=== PATIENT | male | born 1990 ===

== ENCOUNTER 2022-09-03 04:33 | Day surgery (SDC) | payer OTHER ==
[2022-09-01 14:40] VITALS: BMI 35.4
[2022-09-03 13:23] VITALS: TEMP 97.8
[2022-09-03 13:41] VITALS: RESP 17
[2022-09-03 14:20] VITALS: BP 112/84; PULSE 58
== END 2022-09-03 13:50 | disposition home or self-care (01) ==
LOC: JASU-ENDO 04:33
PROVIDERS: ATTEND Internal Medicine Gastroenterology
PROC: 0DJD8ZZ Inspection of Lower Intestinal Tract, Via Natural or Artificial Opening Endoscopic (ICD-10-PCS; principal; 2022-09-03 11:45)
DX: Z12.11 Encounter for screening for malignant neoplasm of colon (principal); Z80.0 Family history of malignant neoplasm of digestive organs